=== PATIENT | female | born 1960 | race Caucasian/White ===

== ENCOUNTER → 2020-01-31 14:27 | Outpatient (POV) | payer MEDICARE, SELFPAY | PROVIDERS: Visit Provider Dermatology | DX: Z00.00 Encounter for general adult medical examination without abnormal findings (principal) ==

== ENCOUNTER 2022-04-26 15:59 | Emergency (ER) | payer MEDICARE, SELFPAY ==
[2022-04-26] VITALS (7 sets, daily range): BP systolic 130–181; BP diastolic 71–90; PULSE 69–78; RESP 16–18; TEMP 36.5–36.8; O2SAT 95–100; BMI 26.6
--- NOTE | 2022-04-26 16:12 | CT_ITS ---
PROCEDURE INFORMATION: Exam: CT Maxillofacial Without Contrast Exam date and time: 04/26/2022 4:24 PM Age: 61 years old Clinical indication: Injury or trauma; Fall; Blunt trauma (contusions or hematomas); Ocular (eye or eyeball); Bilateral; Additional info: Fall x 3 days ago, bilateral black eyes TECHNIQUE: Imaging protocol: Computed tomography of the face without contrast. Radiation optimization: All CT scans at this facility use at least one of these dose optimization techniques: automated exposure control; mA and/or kV adjustment per patient size (includes targeted exams where dose is matched to clinical indication); or iterative reconstruction. COMPARISON: No relevant prior studies available. FINDINGS: Orbital cavities: Globes are symmetric. Orbital rims/dickey are intact. Intraconal fat appear unremarkable. Lacrimal glands are unremarkable. No proptosis Bones/joints: No acute maxillofacial fracture. Paranasal sinuses: Normal. No air-fluid levels. Soft tissues: Right frontal scalp hematoma. IMPRESSION: 1. Right frontal scalp hematoma. 2. Globes are symmetric. Orbital rims/dickey are intact. Intraconal fat appear unremarkable. Lacrimal glands are unremarkable. No acute maxillofacial fracture.
--- NOTE | 2022-04-26 16:12 | XR_ITS ---
PROCEDURE INFORMATION: Exam: XR Right Ankle Exam date and time: 04/26/2022 4:39 PM Age: 61 years old Clinical indication: Injury or trauma; Fall; Blunt trauma; Ankle; Right; Additional info: Fall, bruising and swelling TECHNIQUE: Imaging protocol: Radiologic exam of the Right ankle. Views: 3 or more views. COMPARISON: No relevant prior studies available. FINDINGS: Bones/joints: No visible fracture or dislocation. Soft tissues: Normal. IMPRESSION: No visible fracture or dislocation.
--- NOTE | 2022-04-26 16:12 | CT_ITS ---
PROCEDURE INFORMATION: Exam: CT Head Without Contrast Exam date and time: 04/26/2022 4:24 PM Age: 61 years old Clinical indication: Injury or trauma; Fall; Blunt trauma (contusions or hematomas); Additional info: Fall x 3 days ago, facial trauma, bilateral black eyes TECHNIQUE: Imaging protocol: Computed tomography of the head without contrast. Radiation optimization: All CT scans at this facility use at least one of these dose optimization techniques: automated exposure control; mA and/or kV adjustment per patient size (includes targeted exams where dose is matched to clinical indication); or iterative reconstruction. COMPARISON: No relevant prior studies available. FINDINGS: Brain: Chronic lacunar infarct in the left cerebellum. There is no evidence of acute intracranial hemorrhage, extra-axial collection or locoregional mass effect. There are scattered hypodensities in the periventricular and subcortical white matter. The appearance is nonspecific, but most likely represents chronic small vessel disease in a person of this age Cerebral ventricles: The ventricles, sulci and cisterns are normal in size and configuration for patient's age. No hydrocephalus or midline structure shift Pituitary gland and sella: Sellar/parasellar structures, craniocervical junction and orbits are unremarkable Paranasal sinuses: Visualized sinuses are unremarkable. No fluid levels. Mastoid air cells: Visualized mastoid air cells are well aerated. Bones/joints: No calvarial fracture Soft tissues: right frontal scalp hematoma. IMPRESSION: No acute intracranial abnormality. No calvarial fracture.
--- NOTE | 2022-04-26 16:21 | PC.NURSE ---
pt transported to radiology.
[2022-04-26 17:55] LABS: Basophils # 0.1 K/mm3 (0-0.2); Eosinophils # 0.1 K/mm3 (0.0-0.4); Eosinophils % 1.6 % (0.1-12.0); Hematocrit 38.6 % (37.0-47.0); Hemoglobin 12.5 g/dL (12.2-16.2); Lymphocytes # 1.3 K/mm3 (0.7-4.5); Mean Corpuscular HGB Conc 32.5 g/dL (31.8-35.4); Mean Corpuscular Hemoglobin 31.2 pg (27.0-31.2); Mean Corpuscular Volume 96.2 fl (81-99); Monocytes # 0.4 K/mm3 (0.1-1.0); Monocytes % 8.1 % (1.7-9.3); Neutrophils # 3.5 K/mm3 (1.8-7.8); Neutrophils % 65.3 % (37.0-80.0); Platelet Count 249 K/mm3 (142-424); Red Blood Count 4.01 M/mm3 (4.20-5.40); Red Cell Distribution Width 15.7 % (11.5-17.5); White Blood Count 5.3 K/mm3 (4.8-10.8)
[2022-04-26 17:56] LABS: Chloride 99 mmol/L (98-107)
[2022-04-26 17:57] LABS: Potassium 3.8 mmoL/L (3.5-5.1); Sodium 138 mmol/L (136-145)
[2022-04-26 17:59] LABS: Blood Urea Nitrogen 9 mg/dl (7-17); Creatinine Clearance Estimated 61 mL/min (50-200); Estimated Glomerular Filt Rate 85 ml/min (>60); GFR (African American) 103 ML/MIN (>60)
[2022-04-26 18:00] LABS: Alanine Aminotransferase 21 U/L (12-78); Albumin/Globulin Ratio 1.5 (1.1-1.8); Alkaline Phosphatase 56 U/L (38-126); Anion Gap 7.8 mEq/L (5-15); Aspartate Amino Transferase 36 U/L (14-36); Bilirubin,Total 0.4 mg/dl (0.2-1.3); Calcium 8.6 mg/dl (8.4-10.2); Carbon Dioxide 35 mmol/L (22.0-30.0); Globulin 2.7 g/dL (1.3-3.2); Glucose 92 mg/dl (74-100); Total Protein,Serum 6.7 g/dl (6.3-8.2)
[2022-04-26 18:03] LABS: INR 3.59 (0.9-1.1); Prothrombin Time 36.1 seconds (10.1-12.5)
--- NOTE | 2022-04-26 18:58 | [facility].EDFALL ---
Discharge Plan Disposition Patient Disposition: Home, Self-Care Condition: Fair Prescriptions Prescriptions: No Action atorvastatin 80 MG tablet 80 mg PO DAILYDM carvedilol 25 MG tablet 25 mg PO BID venlafaxine 150 MG capsule,extended release 24hr 150 mg PO DAILY warfarin 6 MG tablet 6 mg PO DAILY ferrous gluconate 240 MG tablet 240 mg PO DAILY bumetanide 1 MG tablet 2 mg PO DAILY ergocalciferol (vitamin D2) 50,000 UNIT capsule 50,000 unit PO DAILY potassium chloride 20 MEQ tablet extended release 20 meq PO DAILY azithromycin 250 MG tablet 250 mg PO DIRECTED Qty: 6 0RF Rx Instructions: Take two (2) tablets on day #1, then one (1) tablet day #2 thru #5 prednisone 20 MG tablet 20 mg PO BID Qty: 10 0RF cefdinir 300 MG capsule 300 mg PO BID Qty: 10 0RF Referrals Follow up/Referrals: Coty Simmons MD [Primary Care Provider] - See instructions Clinical Impressions Clinical Impression: Facial hematoma Instructions Patient Instructions: DI for Hematoma (Bruise), How to Prevent Falls Discharge ED Provider: Brain Allen Fall HPI General Chief Complaint: Fall Stated Complaint: AO01/04 facial bruising Time Seen by Provider: 04/26/22 18:00 Mode of Arrival: Ambulatory Source of Information: Patient Limitations: No Limitations Description of Symptoms (Recalled from ER Triage Doc. by RN): c/o bruising and swelling in face with more by the right eye and bilateral bruises on forearm and right ankle bruising. PT states that Thursday night she got tripped up in her cell phone cord and fell. Unsure what she hit or if it knocked her out. She just knows she woke up with 2 quilts one and she remembers only having one quilt on. History of Present Illness HPI Narrative: Patient is a 61-year-old female with past medical history of COPD, mechanical valve on warfarin who presents with concern for bruising. She states that she tripped over a cell phone cord 2 days ago. She says at the time she does not remember if she lost consciousness. She says that really all she remembers around the is waking up in her bed covered in blankets. She thinks that her last INR was in the 30s. She says that she sustained substantial bruising over her right forehead and around her eyes. She says that her eyes have started getting painful to move and she says there is quite a bit of pressure. She says that she feels like there is a lot of pressure on her face. She denies any neck pain. Denies any numbness or tingling into her extremities. Denies any headache. She also states that she might have rolled her right ankle. Related Data Home Medications Medication Instructions Recorded Confirmed atorvastatin 80 mg tablet 80 mg PO DAILYDM Cholesterol 07/16/19 07/16/19 bumetanide 1 mg tablet 2 mg PO DAILY diuretic 07/16/19 07/16/19 carvedilol 25 mg tablet 25 mg PO BID htn 07/16/19 07/16/19 ergocalciferol (vitamin D2) 1,250 50,000 unit PO DAILY Supplement 07/16/19 07/16/19 mcg (50,000 unit) capsule ferrous gluconate 240 mg (27 mg 240 mg PO DAILY Supplement 07/16/19 07/16/19 iron) tablet potassium chloride 20 mEq 20 meq PO DAILY Supplement 07/16/19 07/16/19 tablet,extended release venlafaxine 150 mg 150 mg PO DAILY mood 07/16/19 07/16/19 capsule,extended release 24 hr warfarin 6 mg tablet 6 mg PO DAILY anticoag 07/16/19 07/16/19 Previous Rx's Medication Instructions Recorded azithromycin 250 mg tablet 250 mg PO DIRECTED #6 tabs 07/16/19 cefdinir 300 mg capsule 300 mg PO BID #10 caps 07/16/19 prednisone 20 mg tablet 20 mg PO BID #10 tabs 07/16/19 Allergies Allergy/AdvReac Type Severity Reaction Status Date / Time No Known Allergies Allergy Verified 07/16/19 20:06 [facility] Disclaimer: The information contained in this section may have been updated after the patient was seen, as this information can be updated by other users. [employer]
== END 2022-04-26 18:42 | disposition home or self-care (01) ==
PROVIDERS: Emergency Provider Student in an Organized Health Care Education/Training Program; PCP Family Medicine
DX: S00.83XA Contusion of other part of head, initial encounter (principal); W01.0XXA Fall on same level from slipping, tripping and stumbling without subsequent striking against object, initial encounter; J44.9 Chronic obstructive pulmonary disease, unspecified; Z79.01 Long term (current) use of anticoagulants; Z95.2 Presence of prosthetic heart valve; F17.210 Nicotine dependence, cigarettes, uncomplicated
CPT/HCPCS: 70450; 70486; 73610; 80053; 85025; 85610; 99285

== ENCOUNTER 2024-06-21 11:51 | Outpatient (CLI) | payer MEDICARE, MEDICAID, SELFPAY ==
[2024-06-21] VITALS (10 sets, daily range): BP systolic 100–123; BP diastolic 54–72; PULSE 68–72; RESP 14–20; TEMP 36.4–36.8; O2SAT 97–99
[2024-06-21] MEDS: [UNRECOGNIZED DRUG - OTHER] IV (12:16)
[2024-06-21] MEDS: MAGNESIUM SULFATE IV (12:16)
[2024-06-21] MEDS: POTASSIUM CHLORIDE IV (12:16)
== END 2024-06-21 14:20 | disposition home or self-care (01) ==
LOC: INF 11:53
PROVIDERS: PCP Family Medicine; Visit Provider Nurse Practitioner
DX: E87.6 Hypokalemia (principal)
CPT/HCPCS: 96360; 96361; J3480; J7030

== ENCOUNTER 2024-06-24 13:09 | Outpatient (CLI) | payer MEDICARE, MEDICAID, SELFPAY ==
--- NOTE | 2024-06-24 13:15 | CT_ITS ---
FINAL REPORT TECHNIQUE: Axial CT images were performed from the lung bases through the iliac crests. Coronal and sagittal reformats were submitted.This study was performed with techniques to keep radiation doses as low as reasonably achievable (ALARA). Individualized dose reduction techniques using automated exposure control or adjustment of mA and/or kV according to the patient''''s size were employed. CLINICAL HISTORY: ABNORMAL KIDNEY FUNCTION FINDINGS: The lung bases are clear. The right kidney is mildly atrophic measuring 8.5 cm in length. The left kidney is borderline small measuring 8.8 cm. There is no hydronephrosis. The remaining solid organs are unremarkable. The gallbladder is normal. The bowel is without acute abnormality. The appendix is normal. There are mild chronic compression fractures of T12 and L5. IMPRESSION: No upper urinary tract obstruction. Mild right renal atrophy. No renal stone disease or obvious renal mass. Reviewed, Interpreted and Dictated by Kofi Hunter MD Transcribed by Aliya Perez Authenticated and [facility]
== END 2024-06-24 23:59 | disposition home or self-care (01) ==
LOC: RAD 13:10
PROVIDERS: PCP Family Medicine; Visit Provider Family Medicine
DX: R94.4 Abnormal results of kidney function studies (principal)
CPT/HCPCS: 74150

== ENCOUNTER 2024-06-29 14:13 | Outpatient (CLI) | payer MEDICARE, MEDICAID, SELFPAY ==
--- NOTE | 2024-06-29 | XR_ITS ---
FINAL REPORT CLINICAL HISTORY: CONGESTION COMPARISON: 07/17/2019 FINDINGS: 2 views of the chest were obtained . The heart is mildly enlarged. Patient is status post median sternotomy. A pacemaker is in place. The mediastinum is within normal limits. The lungs are clear. There is no pneumothorax. Osseous structures are unremarkable. Surgical clips are noted at the left axilla. IMPRESSION: No acute cardiopulmonary process. Reviewed, Interpreted and Dictated by Chris Kilgore MD Transcribed by Yasmeen Roberts Authenticated and . [facility]
== END 2024-06-29 23:59 | disposition home or self-care (01) ==
LOC: RAD 14:17
PROVIDERS: PCP Family Medicine; Visit Provider Family Medicine
DX: R09.89 Other specified symptoms and signs involving the circulatory and respiratory systems (principal)
CPT/HCPCS: 71046